=== PATIENT | female | born 1980 | race Caucasian/White ===

== ENCOUNTER 2019-08-09 11:41 | Emergency (ER) | payer MEDICAID, OTHER ==
[~2019-08-09] VITALS: Ht 162.6 cm; Wt 59.0 kg
--- NOTE | 2019-08-09 11:50 | NUR ---
c/o facial swelling,brink, itching, no sob s/p laser treatment wednesday. Patient a/ox4, ambulatory with steady gait. No distress noted.
--- NOTE | 2019-08-09 12:50 | NUR ---
CHINO BHARDWAJ AT BEDSIDE FOR EVAL.
--- NOTE | 2019-08-09 13:15 | NUR ---
Patient discharged to home in stable condition. Written and verbal after care instructions given. Patient verbalizes understanding of instruction.
[2019-08-09 13:16] VITALS: BP 94/69
== END 2019-08-09 13:16 | disposition home or self-care (01) ==
LOC: ER 11:41
DX: R21 Rash and other nonspecific skin eruption (principal); Z77.123 Contact with and (suspected) exposure to radon and other naturally occurring radiation; F32.9 Major depressive disorder, single episode, unspecified; E03.9 Hypothyroidism, unspecified